=== PATIENT | male | born 1940 | race African-American/Black ===

== ENCOUNTER 2018-03-16 13:36 | Emergency (ER) | payer MEDICARE, BC ==
[~2018-03-16] VITALS: Ht 175.3 cm; Wt 85.0 kg
[2018-03-16 15:26] LABS: BASOPHILS % 0.7 % (0.0-2.0); HEMATOCRIT. 35.9 % (42.0-52.0); HEMOGLOBIN. 11.2 g/dL (14.0-18.0); LYMPHOCYTES % 21.8 % (20.0-50.0); MEAN CORPUSCULAR HEMOGLOBIN 24.8 pg (28.0-32.0); MEAN CORPUSCULAR VOLUME 79.7 fL (80.0-94.0); MEAN PLATELET VOLUME 11.1 fl (7.4-10.4); MONOCYTES % 12.3 % (2.0-8.0); NEUTROPHILS % 63.2 % (40.0-76.0); PLATELET 77 x1000/uL (130-400); RED CELL DISTRIBUTION WIDTH 14.4 % (11.6-14.6)
[2018-03-16 15:32] LABS: INR 1.2; PROTHROMBIN TIME 12.7 sec (9.4-11.6)
[2018-03-16 16:01] LABS: CHLORIDE 106 mEq/L (98-107)
[2018-03-16 18:41] VITALS: BP 150/89
== END 2018-03-16 18:42 | disposition home or self-care (01) ==
LOC: ER 13:55
DX: K40.90 Unilateral inguinal hernia, without obstruction or gangrene, not specified as recurrent (principal); F03.90 Unspecified dementia, unspecified severity, without behavioral disturbance, psychotic disturbance, mood disturbance, and anxiety; E11.9 Type 2 diabetes mellitus without complications; I10 Essential (primary) hypertension
CPT/HCPCS: 36415; 74176; 80053; 82962; 83690; 85025; 85610; 99285